=== PATIENT | female | born 1955 | race Caucasian/White ===

== ENCOUNTER 2017-06-21 15:54 | Emergency (ER) | payer BC ==
--- NOTE | 2017-06-21 17:33 | EDM.PDOC ---
ED HPI GENERAL MEDICAL PROBLEM - General Chief Complaint: Upper Extremity Injury/Pain Stated Complaint: FELL AND INJURIED RIGHT ARM AND LEFT TOE Time Seen by Provider: 06/21/17 16:17 Source of Information: Reports: Patient, RN Notes Reviewed - History of Present Illness INITIAL COMMENTS - FREE TEXT/NARRATIVE: 61-year-old female slipped, fell, suffered contusion injury to right forearm with resultant extremely large, short time ago. That she also twisted and injured her left foot as she fell. No head or neck injury. No chest or back discomfort. No major numbness or tingling fingers or hand of the right arm. Her foot is sore at rest and worse with weightbearing. Right Arm Pain Score (Numeric/FACES): 5 - Related Data Allergies Allergy/AdvReac Type Severity Reaction Status Date / Time No Known Allergies Allergy Verified 09/22/14 06:51 Home Meds: Home Meds Carvedilol 6.25 mg PO DAILY 06/21/17 [History] Citalopram Hydrobromide [Celexa] 40 mg PO DAILY 06/21/17 [History] Lisinopril 10 mg PO DAILY 06/21/17 [History] Past Medical History HEENT History: Reports: Hard of Hearing Cardiovascular History: Reports: High Cholesterol, Hypertension, Other (See Below) Other Cardiovascular History: left bundle branch block, ejection fraction of 35% Musculoskeletal History: Reports: Other (See Below) Other Musculoskeletal History: chronic bilateral wrist pain Psychiatric History: Reports: Anxiety - Past Surgical History Female Surgical History: Reports: Hysterectomy Social & Family History - Tobacco Use Smoking Status *Q: Never Smoker Second Hand Smoke Exposure: No - Caffeine Use Caffeine Use: Reports: Coffee - Recreational Drug Use Recreational Drug Use: No Review of Systems - Review of Systems Review Of Systems: See Below Constitutional: Reports: No Symptoms Eyes: Reports: No Symptoms Ears: Reports: No Symptoms Nose: Reports: No Symptoms Mouth/Throat: Reports: No Symptoms Respiratory: Denies: Shortness of Breath, Pleuritic Chest Pain Cardiovascular: Denies: Chest Pain GI/Abdominal: Denies: Abdominal Pain, Nausea, Vomiting Musculoskeletal: Reports: Other (Large area of bruising right forearm, elbow wrist and hand nontender, good range of motion) ED EXAM, GENERAL - Physical Exam Exam: See Below General Appearance: Alert, Mild Distress Eye Exam: Bilateral Eye: PERRL Ear Exam: Bilateral Ear: Auricle Normal Nose: Normal Inspection Throat/Mouth: Normal Inspection Head: Atraumatic. No: Facial Swelling Neck: Normal Inspection, Supple Respiratory/Chest: No Respiratory Distress, Lungs Clear, Normal Breath Sounds Cardiovascular: Regular Rate, Rhythm Back Exam: Normal Inspection Extremities: Other (Extremely large hematoma proximal right forearm dorsal and lateral aspect with localized tenderness, elbow wrist and hand all nontender without swelling or deformity, good range of motion with some discomfort) Neurological: Alert, Oriented, No Motor/Sensory Deficits Skin Exam: Warm, Dry, Ecchymosis (Right forearm) Course - Vital Signs Last Recorded V/S: Last Vital Signs Temp 98.2 F 06/21/17 16:03 Pulse 64 06/21/17 16:03 Resp 18 06/21/17 16:03 BP 164/98 H 06/21/17 16:03 Pulse Ox 97 06/21/17 16:03 - Orders/Labs/Meds Orders: Active Orders 24 hr Category Date Time Status Foot Comp Min 3V Lt [CR] Stat Exams 06/21/17 16:24 Taken Forearm 2V Rt [CR] Stat Exams 06/21/17 16:24 Taken - Re-Assessments/Exams Free Text/Narrative Re-Assessment/Exam: 06/21/17 18:41 X-rays show no fracture Departure - Departure Time of Disposition: 17:31 Disposition: Home, Self-Care 01 Condition: Fair Clinical Impression: Hematoma Fall Qualifiers: Encounter type: initial encounter Qualified Code(s): W19.XXXA - Unspecified fall, initial encounter Sprain of foot, left Qualifiers: Encounter type: initial encounter Qualified Code(s): S93.602A - Unspecified sprain of left foot, initial encounter - Discharge Information Instructions: Fall Prevention in the Home, [id number], Foot Sprain, Hematoma , [id number] Referrals: Jennifer Ventura PA-C [Primary Care Provider] - Forms: ED Department Discharge Additional Instructions: Ronnie wrap right forearm, ice packs and elevation, especially today and tomorrow. Stop aspirin for at least 1 week, as discussed the area of bruising will spread out to likely cover all of your forearm within a few days. Tylenol about 3 times daily as needed for discomfort, follow-up clinic as needed, return to ED as needed. - My Orders Last 24 Hours: My Active Orders 06/21/17 16:24 Foot Comp Min 3V Lt [CR] Stat Forearm 2V Rt [CR] Stat - Assessment/Plan Last 24 Hours: My Active Orders 06/21/17 16:24 Foot Comp Min 3V Lt [CR] Stat Forearm 2V Rt [CR] Stat
--- NOTE | 2017-06-22 17:44 | CR ---
Left foot: Four views of the left foot were obtained. Comparison: No previous foot exam. No calcaneal spurs are seen. No discrete fracture, dislocation or other bony abnormality is seen. Impression: 1. Nothing acute is appreciated on left foot study. Diagnostic code #1
--- NOTE | 2017-06-22 17:44 | CR ---
Right forearm: Two views of the right forearm were obtained. Soft tissue swelling is identified. No fracture or other bony abnormality is seen. Impression: 1. Soft tissue swelling. No acute bony abnormality is identified on two-view right forearm study. Diagnostic code #2
== END 2017-06-21 17:38 | disposition home or self-care (01) ==
LOC: JD.ED 15:54
DX: S93.602A Unspecified sprain of left foot, initial encounter (principal); S50.11XA Contusion of right forearm, initial encounter; W01.0XXA Fall on same level from slipping, tripping and stumbling without subsequent striking against object, initial encounter; X50.1XXA Overexertion from prolonged static or awkward postures, initial encounter; Z79.899 Other long term (current) drug therapy; F41.9 Anxiety disorder, unspecified; Z90.710 Acquired absence of both cervix and uterus
CPT/HCPCS: 73090-26-RT; 73090-RT; 73630-26-LT; 73630-LT; 99283; 99284

== ENCOUNTER 2024-01-25 15:18 | Emergency (ER) | payer MEDICARE, BC ==
[2024-01-25] MEDS: Ketorolac 30 MG/ML SDV IM ONE (17:30)
[2024-01-25] MEDS: Diphtheria,Pertussis(Acell),Tetanus Vaccine 0.5 ML Syringe IM ONE (18:45)
== END 2024-01-25 19:00 | disposition home or self-care (01) ==
LOC: JD.ED 15:18
DX: S42.291A Other displaced fracture of upper end of right humerus, initial encounter for closed fracture (principal); I11.0 Hypertensive heart disease with heart failure; I50.9 Heart failure, unspecified; E78.00 Pure hypercholesterolemia, unspecified; Z88.8 Allergy status to other drugs, medicaments and biological substances; Z79.899 Other long term (current) drug therapy; Z23 Encounter for immunization; Z90.710 Acquired absence of both cervix and uterus; W11.XXXA Fall on and from ladder, initial encounter
CPT/HCPCS: 73030; 90471; 90715; 96372; 99283; J1885